=== PATIENT | female | born 1965 | race Caucasian/White ===

== ENCOUNTER 2017-09-28 19:59 | Emergency (ER) | payer OTHER ==
[2017-09-28 20:17] VITALS: BP 136/77
--- NOTE | 2017-09-28 20:20 | UC ---
Respiratory Complaint HPI - HPI Summary HPI Summary: 52 YEAR OLD FEMALE PRESENTS WITH SEVERE COUGH. - History of Current Complaint Chief Complaint: UCRespiratory Stated Complaint: SOB,COUGH Time Seen by Provider: 09/28/17 20:19 Hx Obtained From: Patient Onset/Duration: Sudden Onset Severity Initially: Moderate Severity Currently: Moderate Pain Scale Used: 0-10 Numeric - 5 Character: Cough: Nonproductive Alleviating Factors: Bronchodilator Associated Signs And Symptoms: Positive: Wheezing - Allergies/Home Medications Allergies/Adverse Reactions: Allergies Allergy/AdvReac Type Severity Reaction Status Date / Time Clarithromycin [From Biaxin] Allergy Vomiting Verified 09/28/17 20:10 Morphine Allergy Hallucinati Verified 09/28/17 20:10 ons Home Medications: Home Medications [id number]-[id number]-[id number] [Nighttime Cold/Flu Relief 15-6.25-325 mg/15Ml] 1 liq PO PRN 09/28/17 [History] PMH/Surg Hx/FS Hx/Imm Hx Previously Healthy: Yes - Surgical History Surgical History: Yes Surgery Procedure, Year, and Place: hernia. 3- . recontruction on toes. partial hysterectomy. cyst removal on R great toe - Family History Known Family History: Positive: None - Social History Alcohol Use: None Substance Use Type: None Smoking Status (MU): Never Smoked Tobacco - Immunization History Most Recent Influenza Vaccination: NO Review of Systems Constitutional: Negative Skin: Negative Eyes: Negative ENT: Sore Throat, Nasal Discharge, Sinus Congestion, Sinus Pain/Tenderness Respiratory: Cough Cardiovascular: Negative Gastrointestinal: Negative Genitourinary: Negative Motor: Negative Neurovascular: Negative Musculoskeletal: Negative Neurological: Negative Psychological: Negative All Other Systems Reviewed And Are Negative: Yes Physical Exam Triage Information Reviewed: Yes Vital Signs: Initial Vital Signs Temp 37.5 C 09/28/17 20:11 Pulse 74 09/28/17 20:11 Resp 20 09/28/17 20:11 BP 136/77 09/28/17 20:11 Pulse Ox 100 09/28/17 20:11 Vital Signs Reviewed: Yes Eye Exam: Normal ENT: Positive: Pharyngeal erythema, Nasal congestion, Nasal drainage Dental Exam: Normal Neck exam: Normal Neck: Positive: 1 Respiratory: Positive: Rhonchi, Wheezing Cardiovascular Exam: Normal Abdominal Exam: Normal Musculoskeletal Exam: Normal Neurological Exam: Normal Psychological Exam: Normal Skin Exam: Normal UC Diagnostic Evaluation - Laboratory O2 Sat by Pulse Oximetry: 100 Respiratory Course/Dx - Differential Dx/Diagnosis Provider Diagnoses: BRONCHITIS. CONGESTION. FEVER Discharge - Discharge Plan Condition: Stable Disposition: HOME Prescriptions: Amoxicillin/Clavulanate TAB* [Augmentin TAB 875*] 875 mg PO BID #20 tab Benzonatate CAP* [Tessalon 100 MG CAP*] 100 mg PO TID PRN #30 cap PRN Reason: Cough Methylprednisolone [Medrol Dosepak 4 MG*] 4 mg PO .SEE RICK INSTRUCTION #21 tab Promethazine-Dm [Promethazine/Dextromethor 6.25-15 mg/5Ml] 1 teasp PO Q8H PRN # 120 ml PRN Reason: Cough Patient Education Materials: How to Use a Metered-Dose Inhaler (ED), Acute Cough (ED) Referrals: SILKE Candelario [Primary Care Provider] -
--- NOTE | 2017-09-28 20:56 | RAD ---
Indication: Cough. 2 views of the chest including dual energy PA views are reviewed. No mediastinal shift is noted. Heart is of normal size and configuration. Lung hall demonstrate no pleural fluid, or pneumothorax. IMPRESSION: No active cardiopulmonary disease.
[2017-09-28] MEDS ORDERED: predniSONE TAB* 20 MG PO ONE ×3 (21:09→21:34)
[2017-09-28] MEDS ORDERED: Amoxicillin/Clavulanate TAB* 875 MG PO ONE ×2 (21:10→21:17)
[2017-09-28] MEDS ORDERED: Benzonatate CAP* 100 MG PO ONE ×2 (21:10→21:17)
[2017-09-28] MEDS ORDERED: Albuterol/Ipratropium NEB.SOL* Albuterol 2.5 MG/Ipratropium 0.5 MG 3 ML INH ONE (21:11)
[2017-09-28] MEDS ORDERED: Albuterol HFA INHALER* 8 gm MDI INH ONE (21:12)
== END 2017-09-28 21:51 | disposition home or self-care (01) ==
LOC: UCCORT 19:59
DX: J40 Bronchitis, not specified as acute or chronic (principal); J34.89 Other specified disorders of nose and nasal sinuses; R50.9 Fever, unspecified
CPT/HCPCS: 71020; 99213; A9270-GY; G0463; J7512